=== PATIENT | male | born 1970 ===

== ENCOUNTER 2021-10-07 22:53 | Emergency (ER) | payer BC ==
[2021-10-08] MEDS ORDERED: SODIUM CHLORIDE 0.9% 1000 ML 1,000 ML IV ONE (03:49)
[2021-10-08] MEDS ORDERED: KETOROLAC 30 MG/1 ML INJ IV ONE (03:49)
[2021-10-08] MEDS ORDERED: ONDANSETRON 4 MG/2 ML INJ IV ONE (03:49)
[2021-10-08] MEDS ORDERED: MORPHINE 4 MG/1 ML INJ IV ONE (03:49)
[2021-10-08 04:11] LABS: Basophils # (Auto) 0.1 K/mm3 (0.0-0.1); Basophils % (Auto) 0.6 % (0.0-1.8); Eosinophils # (Auto) 0.2 K/mm3 (0.0-0.4); Eosinophils % (Auto) 1.7 % (0.0-4.3); Hematocrit 46.7 % (35.5-45.6); Lymphocytes # (Auto) 3.3 K/mm3 (1.2-5.4); Mean Corpuscular HGB Conc 34 % (32-34); Mean Corpuscular Volume 88 fl (84-94); Monocytes # (Auto) 0.4 K/mm3 (0.0-0.8); Monocytes % (Auto) 4.1 % (0.0-7.3); Platelet Count 251 K/mm3 (140-440); Red Blood Count 5.34 M/mm3 (3.65-5.03); Red Cell Distribution Width 13.8 % (13.2-15.2)
[2021-10-08 04:47] LABS: Alanine Aminotransferase 42 units/L (7-56); Albumin 4.3 g/dL (3.9-5); Blood Urea Nitrogen 11 mg/dL (9-20); Calcium 9.3 mg/dL (8.4-10.2); Hemolysis Index 330
[2021-10-08 04:57] LABS: BUN/Creatinine Ratio 16
--- NOTE | 2021-10-08 05:03 | Cat Scan Report ---
CT ABDOMEN AND PELVIS WITHOUT IV CONTRAST INDICATION: Pt complains of RIGHT sided flank pain.. COMPARISON: None available. TECHNIQUE: All CT scans at this facility use dose modulation, automated exposure control, iterative reconstructi on or weight based dosing, when appropriate, to reduce radiation dose to as low as reasonably achieva ble. FINDINGS: Lung Bases: No significant abnormality. Skeletal System: No acute abnormality. ABDOMEN: Liver: No significant abnormality. Gallbladder: No significant abnormality. Bile Ducts: No significant abnormality. Adrenals: No significant abnormality. Right Kidney: No significant abnormality. Left Kidney: No significant abnormality. Pancreas: No significant abnormality. Spleen: No significant abnormality. Upper GI tract: No significant abnormality. Lymph Nodes: No significant adenopathy. Aorta: No significant abnormality. Additional Findings: No significant abnormality. PELVIS: Colon: No significant abnormality. Urinary Bladder and Distal Ureters: No significant abnormality. Appendix: No significant abnormality. Lymph Nodes: No significant adenopathy. Additional Findings: None. IMPRESSION: 1. Within the limitations of non contrast technique, no acute process in the abdomen or pelvis. Signer Name: Arron Anaya MD Signed: 10/08/2021 4:58 AM Workstation Name: [id number]
--- NOTE | 2021-10-08 05:19 | Emergency Department Report ---
ED Abdominal Pain HPI - General Chief Complaint: Back Pain/Injury Stated Complaint: POSS KIDNEY STONES Source: patient, EMS Mode of arrival: Ambulatory Limitations: No Limitations - History of Present Illness Initial Comments: Patient is a 51-year-old male with a history of morbid obesity and chronic recurrent kidney stones who presents to the ED with complaint of acute onset persistent right flank pain that radiates to the right scrotum for the last 2 days, worse in the last the pain has been intermittent and now the scrotal pressure is resolved but the right flank pain 8 hours. Patient states that has been persistent. Patient also complains of nausea and vomiting intermittently. Patient denies headache, dizziness, syncope, testicular pain, hematuria, dysuria, urinary frequency and urgency, fever, chills, cough, sore throat, diarrhea, low back pain and chest pain. MD Complaint: abdominal pain (Right flank pain), flank pain (Right flank pain) -: Sudden, days(s) (2) Location: R flank Radiation: R flank Migration to: no migration Severity: severe Severity scale (0 -10): 7 Quality: aching, sharp Consistency: constant Improves With: nothing Worsens With: nothing Associated Symptoms: denies other symptoms, nausea, vomiting. denies: diarrhea, fever, chills, constipation, dysuria, hematemesis, hematochezia, melena, hematuria, anorexia, syncope - Related Data Previous Rx's Medication Instructions Recorded Last Taken Type HYDROcodone/APAP 5-325 [Lyons 1 each PO Q6HR PRN #12 tablet 10/08/21 Unknown Rx 5/325] Ketorolac [Toradol] 10 mg PO Q6H PRN #20 tab 10/08/21 Unknown Rx Ondansetron [Zofran Odt] 4 mg PO Q6HR PRN #20 tab.rapdis 10/08/21 Unknown Rx Tamsulosin [Flomax] 0.4 mg PO QDAY #10 cap 10/08/21 Unknown Rx Allergies Allergy/AdvReac Type Severity Reaction Status Date / Time No Known Allergies Allergy Unverified 10/07/21 23:01 ED Review of Systems ROS: Stated complaint: POSS KIDNEY STONES Other details as noted in HPI Constitutional: denies: chills, fever Eyes: denies: eye pain, eye discharge, vision change ENT: denies: ear pain, throat pain Respiratory: denies: cough, shortness of breath, wheezing Cardiovascular: denies: chest pain, palpitations Endocrine: no symptoms reported Gastrointestinal: abdominal pain (Right flank pain), nausea, vomiting. denies: diarrhea Genitourinary: denies: urgency, dysuria Musculoskeletal: denies: back pain, joint swelling, arthralgia Skin: denies: rash, lesions Neurological: denies: headache, weakness, paresthesias Psychiatric: denies: anxiety, depression Hematological/Lymphatic: denies: easy bleeding, easy bruising ED Past Medical Hx - Past Medical History Previous Medical History?: Yes Additional medical history: Kidney stones - Surgical History Past Surgical History?: No - Medications Home Medications: Home Medications Medication Instructions Recorded Confirmed Last Taken Type HYDROcodone/APAP 5-325 [Lyons 1 each PO Q6HR PRN #12 tablet 10/08/21 Unknown Rx 5/325] Ketorolac [Toradol] 10 mg PO Q6H PRN #20 tab 10/08/21 Unknown Rx Ondansetron [Zofran Odt] 4 mg PO Q6HR PRN #20 tab.rapdis 10/08/21 Unknown Rx Tamsulosin [Flomax] 0.4 mg PO QDAY #10 cap 10/08/21 Unknown Rx ED Physical Exam - General Limitations: No Limitations General appearance: alert, in no apparent distress - Head Head exam: Present: atraumatic, normocephalic, normal inspection - Eye Eye exam: Present: normal appearance, PERRL, EOMI Pupils: Present: normal accommodation - ENT ENT exam: Present: normal exam, normal orophraynx, mucous membranes moist, TM's normal bilaterally, normal external ear exam - Neck Neck exam: Present: normal inspection, full ROM. Absent: tenderness - Respiratory Respiratory exam: Present: normal lung sounds bilaterally. Absent: respiratory distress, wheezes, rales, rhonchi, chest wall tenderness, accessory muscle use, decreased breath sounds, prolonged expiratory - Cardiovascular Cardiovascular Exam: Present: regular rate, normal rhythm, normal heart sounds. Absent: systolic murmur, diastolic murmur, rubs, gallop - GI/Abdominal GI/Abdominal exam: Present: soft, tenderness (Palpable right flank tenderness), normal bowel sounds. Absent: guarding, rebound, hyperactive bowel sounds, organomegaly - Extremities Exam Extremities exam: Present: normal inspection, full ROM, normal capillary refill - Back Exam Back exam: Present: normal inspection, full ROM. Absent: tenderness, CVA tenderness (R), CVA tenderness (L), muscle spasm, paraspinal tenderness, vertebral tenderness - Neurological Exam Neurological exam: Present: alert, oriented X3, CN II-XII intact, normal gait, reflexes normal - Psychiatric Psychiatric exam: Present: normal affect, normal mood - Skin Skin exam: Present: warm, dry, intact, normal color. Absent: rash ED Course Vital Signs 10/07/21 10/08/21 10/08/21 22:59 04:10 04:11 Temperature 98 F Pulse Rate 76 Respiratory 18 14 14 Rate Blood Pressure 160/87 [Left] O2 Sat by Pulse 98 Oximetry ED Medical Decision Making - Lab Data Result diagrams: 10/08/21 04:01 10/08/21 05:24 - Radiology Data Radiology results: report reviewed, [place] [address] Cat Scan Report Signed Patient: JAIMIE SPRAGUE MR#: [id number] : 1970 Acct:[id number] Age/Sex: 51 / M ADM Date: 10/07/21 Loc: ED Attending Dr: Ordering Physician: IVAN DUGGAN Date of Service: 10/08/21 Procedure(s): CT abdomen pelvis wo con Accession Number(s): [id number] cc: IVAN DUGGAN CT ABDOMEN AND PELVIS WITHOUT IV CONTRAST INDICATION: Pt complains of RIGHT sided flank pain.. COMPARISON: None available. TECHNIQUE: All CT scans at this facility use dose modulation, automated exposure control, iterative reconstruction or weight based dosing, when appropriate, to reduce radiation dose to as low as reasonably achievable. FINDINGS: Lung Bases: No significant abnormality. Skeletal System: No acute abnormality. ABDOMEN: Liver: No significant abnormality. Gallbladder: No significant abnormality. Bile Ducts: No significant abnormality. Adrenals: No significant abnormality. Right Kidney: No significant abnormality. Left Kidney: No significant abnormality. Pancreas: No significant abnormality. Spleen: No significant abnormality. Upper GI tract: No significant abnormality. Lymph Nodes: No significant adenopathy. Aorta: No significant abnormality. Additional Findings: No significant abnormality. PELVIS: Colon: No significant abnormality. Urinary Bladder and Distal Ureters: No significant abnormality. Appendix: No significant abnormality. Lymph Nodes: No significant adenopathy. Additional Findings: None. IMPRESSION: 1. Within the limitations of non contrast technique, no acute process in the abdomen or pelvis. Signer Name: Arron Anaya MD Signed: 10/08/2021 4:58 AM Workstation Name: [id number] Transcribed By: BRYNN Dictated By: Arron Anaya MD Electronically Authenticated By: Arron Anaya MD Signed Date/Time: 10/08/21457 DD/ 4 TD/TT: Print - Medical Decision Making This is a 51-year-old male with a history of morbid obesity and chronic recurrent kidney stones who presents to the ED with complaint of acute onset persistent right flank pain that radiates to the right scrotum for the last 2 days, worse in the last the pain has been intermittent and now the scrotal pressure is resolved but the right flank pain 8 hours. Patient states that has been persistent. Patient also complains of nausea and vomiting inter mittently. In the ED, patient is alert and oriented x3 and is not in any distress. Patient was treated for pain in the ED and also received antiemetics, normal saline 1 L IV bolus x1. Lab test results were reviewed and are all nonactionable. Abdomen pelvis CT scan without contrast showed no acute abnormalities. There is no evidence of kidney stones. The patient may have passed the stone prior to arrival in the ED. On reevaluation, patient's pain is well controlled medication. Patient will discharge home on pain medications and antiemetics and advised to follow-up with his primary care physician in 7 to 10 days for reevaluation or return to the ED immediately if symptoms get worse. - Differential Diagnosis Kidney stones; UTI; muscle strain; ureteric colic Critical care attestation.: If time is entered above; I have spent that time in minutes in the direct care of this critically ill patient, excluding procedure time. ED Disposition Clinical Impression: Acute abdominal pain in right flank, Nausea and vomiting in adult patient, Ureteric colic Disposition: HOME / SELF CARE / HOMELESS Is pt being admited?: No Does the pt Need Aspirin: No Condition: Stable Instructions: Renal Colic, [id number], Nausea and Vomiting, Adult, [id number], Abdominal Pain, Adult, [id number], Flank Pain, Adult, [id number] Additional Instructions: All lab test results were reviewed and are all nonactionable. Abdomen pelvis CT scan without contrast showed no acute abnormalities, no evidence of current kidney stones. You may have had kidney stones prior to arrival in the ED which may have passed. Therefore take medications with food, drink plenty of fluids and follow-up with your primary care physician in 5 to 7 days for reevaluation. Return to the ED immediately if symptoms get worse. Prescriptions: Tamsulosin [Flomax] 0.4 mg PO QDAY #10 cap HYDROcodone/APAP 5-325 [Lyons 5/325] 1 each PO Q6HR PRN #12 tablet PRN Reason: Pain Ketorolac [Toradol] 10 mg PO Q6H PRN #20 tab PRN Reason: Pain Ondansetron [Zofran Odt] 4 mg PO Q6HR PRN #20 tab.rapdis PRN Reason: Nausea Referrals: [facility] [Provider Group] - 3-5 Days Forms: Work/School Release Form(ED) Time of Disposition: 05:20 Print Language: FAROESE
[2021-10-08 05:46] LABS: Bilirubin,Urine NEG (Negative); Blood,Urine SM (Negative); Color,Urine Yellow (Yellow); Mucus,Urine 2+ /HPF; Protein,Urine <15 mg/dL mg/dL (Negative); Urobilinogen,Urine < 2.0 mg/dL (<2.0)
[2021-10-08 05:54] LABS: BUN/Creatinine Ratio 12; Blood Urea Nitrogen 11 mg/dL (9-20); Calcium 9.6 mg/dL (8.4-10.2); Hemolysis Index 18
[2021-10-08 06:14] VITALS: BP 126/75
== END 2021-10-08 06:21 | disposition home or self-care (01) ==
LOC: EDBD → ED 22:53
DX: N23 Unspecified renal colic (principal); R11.2 Nausea with vomiting, unspecified
CPT/HCPCS: 36415; 74176; 80048; 80053; 81001; 83690; 85025; 96361; 96374; 96375; 99284; J1885; J2270; J2405; J7030; Q0162